=== PATIENT | female | born 1980 | race African-American/Black ===

== ENCOUNTER 2023-05-06 15:50 | Outpatient (AMB) | payer OTHER, SELFPAY ==
[2023-05-06 15:51] VITALS: BP 132/80; PULSE 96; TEMP 36.6; O2SAT 98
--- NOTE | 2023-05-06 15:51 | AM.OFFWIN_ITS ---
Intake Vital Signs 05/06/23 15:51 Height 5 ft 10 in BP 132/80 Blood Pressure Location Rt brachial Position Sitting Pulse 96 Pulse Source Pulse Oximeter Temp 97.9 F Temp Source Oral Pulse Oximetry (%) 98 Oxygen Delivery Method Room Air Intake Visit Reasons: EP Lft arm pain 3 days Intake Note: pt is here for c/o left arm pain for 3 days denies injury or fall Patient Tobacco Use Status: Never used Tobacco Allergies gabapentin Allergy (Mild, Verified 05/06/23 15:51) Diarrhea Do you need a note to return to daycare/school/sports/work: Yes HPI EP Lft arm pain 3 days HPI Details 42 yr old female presents to the office for a sick visit. Patient reports that she was mopping the floor aggressively and sprained her wrist. Pain on bending the wrist. She is nursing a baby [facility] Social History Patient Tobacco Use Status: Never used Tobacco Physical Exam Vital Signs: Last Vital Signs Temp 97.9 F 05/06/23 15:51 Pulse 96 05/06/23 15:51 BP 132/80 05/06/23 15:51 Pulse Ox 98 05/06/23 15:51 Oxygen Delivery Method Room Air 05/06/23 15:51 Extrem Other: Left wrist: Slightly swollen, pain on flexion. Tenderness over the dorsum of the hand. Assessment & Plan Assessment & Plan (1) Sprain and strain of left wrist: Code(s): S63.502A - Unspecified sprain of left wrist, initial encounter; S66.912A - Strain of unspecified muscle, fascia and tendon at wrist and hand level, left hand, initial encounter Plan: Wrist brace prescribed. Antiinflammatories ordered. if sx do not improve to follow up here. Coding Level of Care Code Est Pt Level 3 (22408) Diagnoses Sprain and strain of left wrist S63.502A; S66.912A
== END 2023-05-06 16:25 | disposition home or self-care (01) ==
PROVIDERS: Visit Provider Internal Medicine
DX: S63.502A Unspecified sprain of left wrist, initial encounter (principal); S66.912A Strain of unspecified muscle, fascia and tendon at wrist and hand level, left hand, initial encounter
CPT/HCPCS: 99213